=== PATIENT | female | born 1950 | race Caucasian/White ===

== ENCOUNTER 2017-01-12 08:00 | Inpatient (IN) | payer OTHER, MEDICARE ==
[2017-01-13 13:54] VITALS: BMI 26.6
[2017-01-19] MEDS ORDERED: VANCOMYCIN IVPB ONE (07:54)
[2017-01-19] MEDS ORDERED: DEXTROSE 5% IVPB ONE (07:54)
[2017-01-19] MEDS ORDERED: BUPIVACAINE HCL/PF 2.5 MG/ML - 30 ML VIAL IJ ONE (07:54)
[2017-01-19] MEDS ORDERED: CEFAZOLIN 1 GM/D5W 1 GRAM/50 ML BAG IVPB ONE (07:54)
[2017-01-19] MEDS ORDERED: MIDAZOLAM HCL 2 MG/2 ML SINGLE DOSE VIAL ONE ×4 (07:54→10:19)
[2017-01-19] MEDS ORDERED: TRANEXAMIC ACID 1000 MG/10 ML VIAL IVPUSH ONE (07:54)
[2017-01-19] MEDS ORDERED: WATER IVPB ONE (07:54)
[2017-01-19] MEDS ORDERED: oxyCODONE HCL 10 MG SUSTAINED ACTING TABLET PO ONE (07:54)
[2017-01-19] MEDS ORDERED: PROPOFOL 20 ML ONE ×4 (08:51)
[2017-01-19] MEDS ORDERED: SUCCINYLCHOLINE CHLORIDE 200 MG/10 ML VIAL ONE (08:51)
[2017-01-19] MEDS ORDERED: BUPIVACAINE HCL/PF 0.5% (5MG/ML) 10 ML VIAL ONE (08:52)
[2017-01-19] MEDS ORDERED: DEXAMETHASONE SOD PHOSPHATE 4 MG/1 ML VIAL ONE (09:51)
[2017-01-19] MEDS ORDERED: VANCOMYCIN 1,000 MG VIAL (RESTRICTED TO ID ONLY) ONE (09:51)
[2017-01-19] MEDS ORDERED: ceFAZolin SODIUM 1 GM VIAL ONE ×2 (09:51→11:46)
[2017-01-19] MEDS ORDERED: ONDANSETRON 4 MG/2 ML VIAL ONE (09:51)
[2017-01-19] MEDS ORDERED: SODIUM CHLORIDE 0.9% P/F 10 ML VIAL IJ ONE (09:51)
[2017-01-19] MEDS ORDERED: PHENYLEPHRINE HCL 10 MG/1 ML SINGLE DOSE VIAL ONE (09:51)
[2017-01-19] MEDS ORDERED: BUPIVACAINE HCL/PF (5 MG/ML) 30 ML VIAL IJ ONE (10:19)
[2017-01-19] MEDS ORDERED: DEXAMETHASONE SOD PHOSPHATE/PF 10 MG/ML SDV ONE (10:19)
[2017-01-19] MEDS ORDERED: MAGNESIUM HYDROX 2400MG/30ML ORAL SUSPENSION 30 ML CUP PO PRN (11:44)
[2017-01-19] MEDS ORDERED: MAG HYDROX/AL HYDROX/SIMETH 30 ML UNIT-DOSE CUP PO PRN (11:44)
[2017-01-19] MEDS ORDERED: ONDANSETRON 4 MG/2 ML VIAL IVPUSH PRN ×2 (11:44→12:17)
[2017-01-19] MEDS ORDERED: LACTATED RINGERS SOLUTION 1,000 ML IV SCH (11:45)
[2017-01-19] MEDS ORDERED: TRANEXAMIC ACID 1000 MG/10 ML VIAL ONE (11:46)
[2017-01-19] MEDS ORDERED: PROMETHAZINE HCL 25 MG/1 ML VIAL IVPUSH PRN (12:17)
[2017-01-19] MEDS ORDERED: oxyCODONE HCL 5 MG TABLET PO PRN (12:17)
[2017-01-19] MEDS ORDERED: ACETAMINOPHEN 325 MG TABLET (FP) ONE (13:25)
[2017-01-19] MEDS ORDERED: ACETAMINOPHEN 325 MG TABLET (FP) PO ONE (13:27)
[2017-01-19] MEDS ORDERED: oxyCODONE HCL 5 MG TABLET ONE (13:27)
[2017-01-19] MEDS ORDERED: oxyCODONE HCL 5 MG TABLET PO ONE (13:28)
[2017-01-19] MEDS: oxyCODONE HCL 5 MG TABLET PO PRN ×3 (14:20→22:55)
[2017-01-19] MEDS: ACETAMINOPHEN 325 MG TABLET (FP) PO SCH ×2 (14:26→20:30)
--- NOTE | 2017-01-19 17:36 | OP ---
Operative Note - Note: Operative Date: 01/19/17 Pre-Operative Diagnosis: Right knee DJD Operation: Right total knee replacement Findings: Attenuated right knee lateral collateral ligament. Implants: [employer] Triathlon. Femur - 3. Tibia - 4, 50mm stem. Poly - 11mm, TS. Patella - 27mm Surgeon: Evens Mccauley Vacuum Bottle Assembler: Colton Mccauley Anesthesia: Spinal Specimens Removed: Bone, soft tissue Operative Report Dictated: Yes
--- NOTE | 2017-01-19 17:37 | PN ---
Progress Note (short form) - Note Progress Note: 66F s/p R TKA. -Pain control. -DVT PPx: Chemical - Lovenox 40mg SC qD, Mechanical - MARY CARMEN's, SCD's. -Incentive spirometry/pulmonary toilet. -PT/OR/Rehab, OOB. -WBAT RLE. -f/u TOV. -Diet as tolerated. -d/c planning; OK to d/c home tomorrow with services if patient meets criteria.
[2017-01-19] MEDS: CEFAZOLIN 2 GM/D5W 2 GM/50 ML ML IVPB SCH (17:45)
[2017-01-19] MEDS ORDERED: ASPIRIN 325 MG TABLET PO SCH (22:00)
[2017-01-19] MEDS ORDERED: ENOXAPARIN NA (PORCINE) 30 MG/0.3 ML DISP.SYRIN SQ SCH (22:00)
[2017-01-19] MEDS ORDERED: VANCOMYCIN 1 GRAM (PRE-DOCKED) 1,000 MG/250 ML BAG IVPB ONE (22:00)
[2017-01-19] MEDS: GABAPENTIN 300 MG CAPSULE (FP) PO SCH (22:12)
[2017-01-19] MEDS: lamoTRIgine 100 MG TABLET (FP) PO SCH (22:12)
[2017-01-19] MEDS: oxyCODONE HCL 10 MG SUSTAINED ACTING TABLET PO SCH (22:13)
[2017-01-19] MEDS: SENNOSIDES/DOCUSATE COMBO (SENNA PLUS) TABLET (UD) PO SCH (22:13)
[2017-01-19] MEDS: PANTOPRAZOLE 40 MG TABLET (FP) PO SCH (22:28)
[2017-01-20] MEDS: CEFAZOLIN 2 GM/D5W 2 GM/50 ML ML IVPB SCH (02:03)
[2017-01-20] MEDS: oxyCODONE HCL 5 MG TABLET PO PRN ×5 (02:03→22:27)
[2017-01-20] MEDS: ACETAMINOPHEN 325 MG TABLET (FP) PO SCH ×4 (02:04→20:22)
[2017-01-20 08:56] LABS: ANION GAP 7 (8-16); CALCIUM 9.2 mg/dl (8.4-10.2); CO2 25 mmol/L (22-28); CREATININE 1.4 mg/dl (0.6-1.3); GLUCOSE,RANDOM 120 mg/dl (74-106)
[2017-01-20 09:01] LABS: MCH 30.5 pg (25.7-33.7); MCHC 34.5 g/dl (32.0-36.0); MEAN CELL VOLUME 88.6 fl (80-96); MEAN PLT VOLUME 7.7 fl (7.5-11.1); PLATELET COUNT 294 K/MM3 (134-434); RDW 12.6 % (11.6-15.6); WHITE BLOOD COUNT 12.4 K/mm3 (4.0-10.8)
--- NOTE | 2017-01-20 09:01 | PN ---
Physical Exam: SUBJECTIVE: Patient seen and examined, reports feeling well, reports pain to the right lower extremity upon movement, denies any paresthesia to the extremity. OBJECTIVE: Patient is a 66 y/o female with a past medical history of hypertension, bipolar disorder, and osteoarthritis, Patient is s/p right TKR, Dr Mccauley, spinal anaesthesia. Vital Signs Temperature 97.6 F 01/20/17 05:00 Pulse Rate 74 01/20/17 05:00 Respiratory Rate 20 01/20/17 05:00 Blood Pressure 105/61 01/20/17 05:00 O2 Sat by Pulse Oximetry (%) 98 01/19/17 21:00 GENERAL: The patient is awake, alert, and fully oriented, in no acute distress. HEAD: Normal with no signs of trauma. EYES: PERRL, extraocular movements intact, sclera anicteric, conjunctiva clear. No ptosis. ENT: Ears normal, nares patent, oropharynx clear without exudates, moist mucous membranes. NECK: Trachea midline, full range of motion, supple. LUNGS: Breath sounds equal, clear to auscultation bilaterally, no wheezes, no crackles, no accessory muscle use. HEART: Regular rate and rhythm, S1, S2 without murmur, rub or gallop. ABDOMEN: Soft, nontender, nondistended, normoactive bowel sounds, no guarding, no rebound, no hepatosplenomegaly, no masses. EXTREMITIES: 2+ pulses, warm, well-perfused, no edema. RIGHT LOWER EXTREMITY: surgical dressing CDI, RHYS scant serrous sangeneous drainage 10ml NEUROLOGICAL: Cranial nerves II through XII grossly intact. Normal speech, gait not observed. PSYCH: Normal mood, normal affect. SKIN: Warm, dry, normal turgor, no rashes or lesions noted Active Medications Generic Name Dose Route Start Last Admin Trade Name Freq PRN Reason Stop Dose Admin Acetaminophen 650 mg 01/19/17 14:00 01/20/17 02:04 Tylenol - PO 01/22/17 13:59 650 mg Q6H JUSTIN Administration Al Hydroxide/Mg Hydroxide 30 ml 01/19/17 11:44 Mylanta Oral Suspension - PO Q4H PRN DYSPEPSIA Bupropion HCl 300 mg 01/20/17 10:00 Wellbutrin Xl - PO DAILY JUSTIN Enoxaparin Sodium 40 mg 01/20/17 10:00 Lovenox - SQ DAILY [facility] Gabapentin 300 mg 01/19/17 22:00 01/19/17 22:12 Neurontin - PO 300 mg BID JUSTIN Administration Hydrochlorothiazide 12.5 mg 01/20/17 10:00 Hctz - PO DAILY [facility] Lamotrigine 300 mg 01/19/17 22:00 01/19/17 22:12 Lamictal - PO 300 mg HS JUSTIN Administration Magnesium Hydroxide 30 ml 01/19/17 11:44 Milk Of Magnesia - PO PRN PRN CONSTIPATION Multivitamins/Minerals/Vitamin C 1 tab 01/20/17 10:00 Tab-A-Vit - PO DAILY [facility] Ondansetron HCl 4 mg 01/19/17 11:44 Zofran Injection IVPUSH Q6H PRN NAUSEA Oxycodone HCl 5 mg 01/19/17 12:17 Roxicodone - PO Q3H PRN PAIN LEVEL 1-5 Oxycodone HCl 10 mg 01/19/17 12:17 01/20/17 06:33 Roxicodone - PO 10 mg Q3H PRN Administration PAIN LEVEL 6-10 Oxycodone HCl 10 mg 01/19/17 22:00 01/19/17 22:13 Oxycontin - PO 01/22/17 12:18 10 mg BID [facility] Administration Pantoprazole Sodium 40 mg 01/19/17 22:30 01/19/17 22:28 Protonix - PO 40 mg DAILY [facility] Administration Senna/Docusate Sodium 2 tablet 01/19/17 22:00 01/19/17 22:13 Pericolace - PO 2 tablet BID [facility] Administration Topiramate 100 mg 01/20/17 10:00 Topamax - PO DAILY [facility] Valsartan 320 mg 01/20/17 10:00 Diovan - PO DAILY [facility] ASSESSMENT/PLAN: 1) MS s/p right total knee replacement, POD #1 (Shein) - PT daily - incentive spirometer. - prn pain medication 2) Cardiovascular hypertension - continue valsartan and hctz, blood pressure at goal, close b/p monitoring 3) GI barretts esophagus - continue home dose protonix to manage GERD 4)psych bipolar disorder - continue topamax, lamictal and wellbutrin f/e/n - regular low sodium diet ppx - scd/shasha - lovenox - oob - daily physical therapy Dispo: requires inpatient admission
[2017-01-20] MEDS: SENNOSIDES/DOCUSATE COMBO (SENNA PLUS) TABLET (UD) PO SCH ×2 (09:35→22:02)
[2017-01-20] MEDS: HYDROCHLOROTHIAZIDE 12.5 MG CAPSULE (FP) PO SCH (09:35)
[2017-01-20] MEDS: VALSARTAN 160 MG TABLET (UD) PO SCH (09:35)
[2017-01-20] MEDS: GABAPENTIN 300 MG CAPSULE (FP) PO SCH ×2 (09:36→22:02)
[2017-01-20] MEDS: ENOXAPARIN NA (PORCINE) 40 MG/0.4 ML DISP.SYRIN SQ SCH (09:36)
[2017-01-20] MEDS: PANTOPRAZOLE 40 MG TABLET (FP) PO SCH (09:36)
[2017-01-20] MEDS: oxyCODONE HCL 10 MG SUSTAINED ACTING TABLET PO SCH ×2 (09:37→22:02)
[2017-01-20] MEDS: MULTIVITAMINS (DAILY MVI) TABLET (FP) PO SCH (09:38)
[2017-01-20] MEDS ORDERED: PATIENT'S OWN MEDICATION (NON-FORMULARY) (Valsartan/Hydrochlorothiazide [Valsartan-Hctz 32 PO SCH (10:00)
--- NOTE | 2017-01-20 11:13 | PN ---
Progress Note (short form) - Note Progress Note: 66F POD1 s/p right TKR under spinal anesthetic with peripheral nerve blocks for post operative pain. Pt doing well, states that pain is well controlled. Pt denies any anesthetic complications. Sensory and motor function intact in bilateral lower extremities.
[2017-01-20] MEDS ORDERED: PT OWN MED DRAWER 7, Y5N ONE (12:16)
[2017-01-20] MEDS: TOPIRAMATE 100 MG TABLET PO SCH (12:18)
--- NOTE | 2017-01-20 14:38 | OP ---
DATE OF OPERATION: 01/19/2017 SURGEON: Evens Mccauley MD MANAGER [employer]: Colton Mccauley MD ANESTHESIA: Spinal epidural with Dr. Suzanna Hendrix. ANTIBIOTICS: Included 2 g Kefzol and 1 g vancomycin preop and 1 g Kefzol given at the time of release of the tourniquet. 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 OPERATION PERFORMED: 1. Cemented posterior-stabilized total knee arthroplasty (Lancope Triathlon). 2. Complete synovectomy. 3. Wide resection of tumor. OPERATION IN DETAIL: Patient correctly identified, brought in the operating room. The right lower extremity was prepped, free draped in the routine manner with Betadine scrub solution, wiped off with alcohol, DuraPrep applied. A timeout was called. Imaging was available for intraoperative evaluation. This patient has had a number of arthroscopic procedures for sequential resection of focal pigmented villonodular synovitic lesions. With the passage of time, this became a more significant, diffuse oncological growth of PVNS tissue and associated tricompartment destructive arthropathy. Under a bloodless field, a longitudinal incision was utilized. The patella was capsized laterally. Extensive pigmented villonodular synovitis diffusely throughout the knee encountered. This was removed by performing a full synovectomy throughout the knee including posteriorly in a wide tumor resection type manner. Using the Lancope instrumentation, the patella, the tibia, and the femur were cut in that order. The patella from the quadriceps tendon to the patella ligament. The jig utilized for a 27-mm patella button. The tibia was cut to neutral, aligned with extramedullary alignment from the tibial eminence to the middle of the talus. The tibial component measured a size 4 for the tibial baseplate. The femur was then cut appropriately in accordance with the jig system of Lancope to receive a size 3 femoral component. Next, the alignment of the knee with the jig cuts made revealed an excellent alignment. The trial components were seated, giving an excellent jehovah's witness of the mechanical axis. The preoperative fixed flexion deformity of about 15 degrees was now removed as we had proximalized the joint line by 2 mm. The only problem here was that the lateral collateral ligament had been destroyed by the disease process, giving lateral collateral instability. On that basis, we elected to use a constrained condylar-type implant accordingly. That is instead of a posterior-stabilized baseplate, the actual baseplate polyethylene liner was for an enlarged appropriate component to that size 4. Once we were satisfied with the seating of the trial components, the bone beds were thoroughly lavaged with pulse lavage. Cementing was in 1 stage. All extraneous cement was removed, and the exact same sizes inserted, that is a size 4 tibial plate, a size 3 femur, and a size 27-mm patellar button. A size 11 PS insert was inserted onto the polyethylene. The knee was reduced and put through a full range of movement with a negative thumb test on the patella. No need for any lateral release. The wounds were thoroughly lavaged. All extraneous cement was removed. Closure of the quadriceps tendon fascia 1 Vicryl, subcutaneous 1 and 2-0 Vicryl, skin 3-0 Monocryl with Steri-Strips. DRAINAGE: A Orlando-Hess drain inserted. Operation went well. No complications. MD RAUL Gupta/[id number] MTDD
[2017-01-20] MEDS: lamoTRIgine 100 MG TABLET (FP) PO SCH (22:02)
[2017-01-21] MEDS: ACETAMINOPHEN 325 MG TABLET (FP) PO SCH ×2 (07:01→10:31)
[2017-01-21 08:41] LABS: MCHC 32.9 g/dl (32.0-36.0); MEAN CELL VOLUME 88.3 fl (80-96); MEAN PLT VOLUME 7.5 fl (7.5-11.1); PLATELET COUNT 272 K/MM3 (134-434); RDW 12.9 % (11.6-15.6); WHITE BLOOD COUNT 9.8 K/mm3 (4.0-10.8)
[2017-01-21] MEDS ORDERED: PT OWN MED DRAWER 7, Y5N ONE (09:45)
[2017-01-21] MEDS: SENNOSIDES/DOCUSATE COMBO (SENNA PLUS) TABLET (UD) PO SCH (10:30)
[2017-01-21] MEDS: oxyCODONE HCL 10 MG SUSTAINED ACTING TABLET PO SCH (10:30)
[2017-01-21] MEDS: GABAPENTIN 300 MG CAPSULE (FP) PO SCH (10:30)
[2017-01-21] MEDS: VALSARTAN 160 MG TABLET (UD) PO SCH (10:31)
[2017-01-21] MEDS: TOPIRAMATE 100 MG TABLET PO SCH (10:31)
[2017-01-21] MEDS: HYDROCHLOROTHIAZIDE 12.5 MG CAPSULE (FP) PO SCH (10:31)
[2017-01-21] MEDS: MULTIVITAMINS (DAILY MVI) TABLET (FP) PO SCH (10:31)
[2017-01-21] MEDS: PANTOPRAZOLE 40 MG TABLET (FP) PO SCH (10:31)
[2017-01-21] MEDS: ENOXAPARIN NA (PORCINE) 40 MG/0.4 ML DISP.SYRIN SQ SCH (10:32)
--- NOTE | 2017-01-21 13:01 | DS ---
Physical Exam: SUBJECTIVE: Patient seen and examined OBJECTIVE: Vital Signs Temperature 98.3 F 01/21/17 08:10 Pulse Rate 112 H 01/21/17 08:10 Respiratory Rate 18 01/21/17 09:00 Blood Pressure 137/58 01/21/17 08:10 O2 Sat by Pulse Oximetry (%) 100 01/21/17 09:00 PHYSICAL EXAM GENERAL: The patient is awake, alert, and fully oriented, in no acute distress. HEAD: Normal with no signs of trauma. EYES: PERRL, extraocular movements intact, sclera anicteric, conjunctiva clear. ENT: Ears normal, nares patent, oropharynx clear without exudates, moist mucous membranes. NECK: Trachea midline, full range of motion, supple. LUNGS: Breath sounds equal, clear to auscultation bilaterally, no wheezes, no crackles, no accessory muscle use. HEART: Regular rate and rhythm, S1, S2 without murmur, rub or gallop. ABDOMEN: Soft, nontender, nondistended, normoactive bowel sounds, no guarding, no rebound, no hepatosplenomegaly, no masses. EXTREMITIES: 2+ pulses, warm, well-perfused, no edema. NEUROLOGICAL: Cranial nerves II through XII grossly intact. Normal speech, gait not observed. PSYCH: Normal mood, normal affect. SKIN: Warm, dry, normal turgor, no rashes or lesions noted. LABS CBC,CMP WBC 9.8 K/mm3 (4.0-10.8) 01/21/17 07:00 RBC 3.83 M/mm3 (3.60-5.2) 01/21/17 07:00 Hgb 11.1 GM/dl (10.7-15.3) 01/21/17 07:00 Hct 33.8 % (32.4-45.2) 01/21/17 07:00 MCV 88.3 fl (80-96) 01/21/17 07:00 MCH 29.0 pg (25.7-33.7) 01/21/17 07:00 MCHC 32.9 g/dl (32.0-36.0) 01/21/17 07:00 RDW 12.9 % (11.6-15.6) 01/21/17 07:00 Plt Count 272 K/MM3 (134-434) 01/21/17 07:00 MPV 7.5 fl (7.5-11.1) 01/21/17 07:00 Sodium 139 mmol/L (136-145) 01/20/17 07:30 Potassium 4.3 mmol/L (3.5-5.1) 01/20/17 07:30 Chloride 107 mmol/L (98-107) 01/20/17 07:30 Carbon Dioxide 25 mmol/L (22-28) 01/20/17 07:30 Anion Gap 7 (8-16) L 01/20/17 07:30 BUN 23 mg/dl (7-18) H 01/20/17 07:30 Creatinine 1.4 mg/dl (0.6-1.3) H 01/20/17 07:30 Random Glucose 120 mg/dl (74-106) H 01/20/17 07:30 Calcium 9.2 mg/dl (8.4-10.2) 01/20/17 07:30 HOSPITAL COURSE: Date of Admission:01/19/17 Date of Discharge: 01/21/17 The patient was admitted to the Med-Surg Unit after an elective repair of their (problem). Now, s/p ( procedure ). The day of surgery, the patient ambulated the hallways with assistance. Narcotic and non-narcotic pain management control was achieved with an oral and IV approach. POD #1, the surgical drain was removed fully intact and without incident. An xray was obtained and confirmed hardware placement at (level of ), no fractures or dislocations. Yvonne-operative IV ABX were administered. DVT prophylaxis was achieved with SCDs and early ambulation. The patient ambulated with Physical Therapy and no services were recommended upon discharge. Narcotic scripts and or muscle relaxants were checked with [facility] prior to escibe. The discharge instructions and an oral pain management plan were reviewed with the patient. All questions answered. Above plan discussed with Dr. Wilhelm and agreed. Minutes to complete discharge: 45
--- NOTE | 2017-01-21 13:15 | PN ---
Progress Note (short form) - Note Progress Note: 66F doing well s/p R TKA POD #2. Pain well controlled. No acute events overnight. Pt. denies overnight history of chest pain/shortness of breath/vomiting/chills/ sweats. Pt. reports (+) overnight history of nausea. (+) Void; (-) Flatus; (-) Bowel movement. (+) Walked in hallway. Labs, vital signs reviewed. PE: AAO x 3, NAD. R Hip: Dressing C/D/I. RHYS drain intact & in place; 60cc output overnight. NVI distally. 66F doing well s/p R TKA POD #2. -Pain control. -DVT PPx: Chemical - Lovenox 40mg SC qD, Mechanical - MARY CARMEN's, SCD's. -Incentive spirometry/pulmonary toilet. -PT/OR/Rehab, OOB. -WBAT RLE. -Diet as tolerated. -Will plan to remove drain today. -d/c planning.
[2017-01-21 14:47] VITALS: BP 126/61; PULSE 91; TEMP 98
--- NOTE | 2017-01-21 16:45 | PATH ---
Surgical Pathology Report Patient Name: SKYLAR MCKOY Med. Rec. #: [id number] /Age/Gender: 1950 (Age: 66) / F Account: [id number] Location: [facility] MED-SURG Taken: 01/19/2017 Received: 01/19/2017 Reported: 01/21/2017 Physicians: Colton Mccauley M.D. Specimen(s) Received A: PVNS RIGHT KNEE B: BONE RIGHT KNEE Clinical History Osteoarthritis, bursitis of the right knee Final Diagnosis A. 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 B. KNEE, RIGHT BONE, TOTAL KNEE REPLACEMENT: BONE WITH DEGENERATIVE CHANGES. PIGMENTED VILLONODULAR SYNOVITIS. Electronically Signed Kathe Ferro M.D. Gross Description A. Received in formalin labeled "PVN right knee," is an 8.0 x 6.8 x 1.0 cm aggregate of corral-brown, irregular fragments of fibrous and soft tissues. A field representatives director portion is submitted in one cassette. B. Received in formalin labeled "bone right knee," is a 13.0 x 12.5 x 2.0 cm aggregate of multiple corral-yellow, irregular portions of bone and soft tissue. The tibial plateau measures 7.6 x 5.1 x 1.8 cm. There are no areas of eburnation identified. The remaining articular surfaces are corral-yellow and focally granular. The underlying trabecular bone is yellow and hard. Campus Security Officer sections are submitted in one cassette, following decalcification. 01/20/201701/20/2017
== END 2017-01-21 17:15 | disposition home health service (06) | DRG 470 ==
LOC: FM/S 01-19 06:57
PROVIDERS: ADMIT Orthopaedic Surgery Orthopaedic Surgery of the Spine; ATTEND Orthopaedic Surgery Orthopaedic Surgery of the Spine
PROC: 0SBC0ZZ Excision of Right Knee Joint, Open Approach (ICD-10-PCS; 2017-01-19)
PROC: 0SRC0J9 Replacement of Right Knee Joint with Synthetic Substitute, Cemented, Open Approach (ICD-10-PCS; principal; 2017-01-19 10:15)
DX: M17.11 Unilateral primary osteoarthritis, right knee (principal); F31.89 Other bipolar disorder; M12.261 Villonodular synovitis (pigmented), right knee; I10 Essential (primary) hypertension; K22.70 Barrett's esophagus without dysplasia; K21.9 Gastro-esophageal reflux disease without esophagitis
CPT/HCPCS: 36415; 73560-TC-RT; 80048; 85027; 88304-TC; 88311-TC; 94010; 94760; 97116-GP; 97161-GP